=== PATIENT | male | born 1960 | race Hispanic/Latino ===

== ENCOUNTER 2017-02-19 20:10 | Emergency (ER) | payer SELFPAY ==
[2017-02-19 20:29] VITALS: BMI 22.3
[2017-02-19] MEDS ORDERED: TDAP Vaccine 0.5 mL Syr IM ONE (20:29)
--- NOTE | 2017-02-19 20:36 | ED PDOC ---
Lower Extremity Pain/Injury Time Seen by Provider: 02/19/17 20:25 Chief Complaint (Provider): Left toe pain History Per: Patient History/Exam Limitations: no limitations Onset/Duration Of Symptoms: Days Additional Complaint(s): Patient is a 56 year old male presenting to the emergency department for left toe pain that started yesterday after he was applying a piece of erin at work when it slipped and landed on his foot (sneaker-clad), puncturing his left third toe with a nail. Patient pried the nail out himself. Denies numbness or tingling. PCP: none provided. Past Medical History Reviewed: Historical Data, Nursing Documentation, Vital Signs - Medical History PMH: No Chronic Diseases - Surgical History Surgical History: No Surg Hx - Family History Family History: States: Unknown Family Hx - Social History Current smoker - smoking cessation education provided: Yes (Light smoker <5 Cigarettes Daily) Alcohol: None Drugs: Denies - Home Medications Home Medications: Ambulatory Orders Medication Instructions Recorded Acetaminophen with Codeine 1 - 2 tab PO Q6 PRN #12 tab 02/19/17 [Tylenol with Codeine No. 3 300 mg-30 mg] Sulfamethoxazole/Trimethoprim 1 tab PO BID #14 tab 02/19/17 [Bactrim DS 800 mg-160 mg] - Allergies Allergies/Adverse Reactions: Allergies Allergy/AdvReac Type Severity Reaction Status Date / Time No Known Allergies Allergy Verified 04/03/15 20:03 Review of Systems ROS Statement: Except As Marked, All Systems Reviewed And Found Negative Musculoskeletal: Positive for: Foot Pain (Left third toe pain) Neurological: Negative for: Numbness, Other (Tingling) Physical Exam - Reviewed Nursing Documentation Reviewed: Yes Vital Signs Reviewed: Yes - Physical Exam Appears: Positive for: Well, Non-toxic, No Acute Distress Head Exam: Positive for: ATRAUMATIC, NORMAL INSPECTION, NORMOCEPHALIC Skin: Positive for: Normal Color, Warm, Dry Neck: Positive for: Normal, Supple Pulses-Dorsalis Pedis (L): 2+ Extremity: Positive for: Tenderness (Moderate tenderness on left third toe), Capillary Refill (is less than 2 seconds), Other (Moderate ecchymosis and superficial puncture wound on dorsal surface of left third toe). Negative for: Deformity Neurologic/Psych: Positive for: Alert, Oriented - Radiology X-Ray: Interpreted by Me (Foot x-ray) X-Ray Interpretation: Other (L 3rd toe with non-displaced fx at the proximal portion of the middle phalanx) - Progress ED Course And Treament: Pt. evaluated by Angelica, podiatry resident, who spoke with Dr. Ruiz and requests that pt. be prescribed Bactrim DS, Tylenol #3, toe taped, and to f/u with podiatry clinic. May irrigated wound, zulema taped toes. Crutches provided along with crutch walking instructions. Pt. looked up on [place] TAX ADVISOR aware which show no previous narcotic Rx. Medical Decision Making Medical Decision Makin:29 Initial Impression: Left toe pain Initial Plan: * TDAP Vaccine 0.5 mL IM * Left Foot X-Ray * Reevaluation 21:41 X-ray results reviewed and discussed with patient. Results revealed small fracture on left foot. Currently being consulted by dialysis patient care technician. 22:20 Upon provider reevaluation patient is medically stable and requires no further treatment in the ED at this time. Patient will be discharged with Rx for Bactrim 800 mg. Counseling was provided and all questions were answered regarding diagnosis and need for follow up with referred clinic. There is agreement to discharge plan. Return if symptoms persist or worsen. Clinical impression: Toe fracture Scribe Attestation: Documented by Nahomy Singh, acting as a scribe for Sukhdeep Lorenzo PA-C. Provider Scribe Attestation: All medical record entries made by the Scribe were at my direction and personally dictated by me. I have reviewed the chart and agree that the record accurately reflects my personal performance of the history, physical exam, medical decision making, and the department course for this patient. I have also personally directed, reviewed, and agree with the discharge instructions and disposition. Disposition - Clinical Impression Clinical Impression: Toe fracture, Puncture wound - Patient ED Disposition Is Patient to be Admitted: No Counseled Patient/Family Regarding: Studies Performed, Diagnosis, Need For Followup, Rx Given - Disposition Referrals: Podiatry Clinic [Outside] Disposition: Routine/Home Disposition Time: 22:20 Condition: STABLE Additional Instructions: FOLLOW UP WITH PODIATRY CLINIC IN 1 WEEK. Prescriptions: Acetaminophen with Codeine [Tylenol with Codeine No. 3 300 mg-30 mg] 1 - 2 tab PO Q6 PRN #12 tab PRN Reason: pain Sulfamethoxazole/Trimethoprim [Bactrim DS 800 mg-160 mg] 1 tab PO BID #14 tab Instructions: Toe Fracture (ED), Puncture Wound (ED) Print Language: CUBAN
[2017-02-19] MEDS ORDERED: Tetanus/Diphtheria Toxoids 0.5 ml Syringe IM ONE (20:47)
[2017-02-19 20:51] VITALS: RESP 16
[2017-02-19 22:45] VITALS: BP 135/80; PULSE 75; TEMP 97.9; O2SAT 100
--- NOTE | 2017-02-20 16:05 | RAD ---
PROCEDURE: Left 3rd toe HISTORY: trauma COMPARISON: Not available TECHNIQUE: Three views of left foot FINDINGS: There is a nondisplaced oblique intra-articular fracture at the base of the 3rd middle phalanx, medial aspect. No other fracture is identified. The joint spaces and articular surfaces are preserved. IMPRESSION: Nondisplaced oblique intra-articular fracture at the base of the 3rd middle phalanx.
--- NOTE | 2017-02-21 00:03 | CP.PCM.CON ---
History of Present Illness - History of Present Illness History of Present Illness: 56 year old male patient seen at bedside in ED for puncture wound to L 3rd toe. Patient states that he was carrying a piece of plywood and then it fell onto his foot; a nail that was in the plywood punctured his 3rd toe. Patient states he was able to remove the nail himself. Patient feels like there's still something inside his foot. Patient denies N/V/F/D/C/SOB. Tetanus status unknown. No other pedal complaints at this time. PMH: unremarkable PSH: none Meds: see med list FH: noncontributory SH: occasional ETOH, +tobacco use, no illicit drugs All: NKDA Review of Systems - Review of Systems All systems: reviewed and no additional remarkable complaints except (as per HPI ) Past Patient History - Past Medical History & Family History Past Medical History?: No - Past Social History Alcohol: None Drugs: Denies - PSYCHIATRIC Hx Emotional Abuse: No Hx Physical Abuse: No Hx Substance Use: No - SURGICAL HISTORY Hx Surgeries: No - ANESTHESIA Hx Anesthesia: No Meds Home Medications: Home Medication List Medication Instructions Recorded Confirmed Type Acetaminophen with Codeine 1 - 2 tab PO Q6 PRN #12 tab 02/19/17 Rx [Tylenol with Codeine No. 3 300 mg-30 mg] Sulfamethoxazole/Trimethoprim 1 tab PO BID #14 tab 02/19/17 Rx [Bactrim DS 800 mg-160 mg] Allergies/Adverse Reactions: Allergies Allergy/AdvReac Type Severity Reaction Status Date / Time No Known Allergies Allergy Verified 04/03/15 20:03 Physical Exam - Constitutional Appears: Well, Non-toxic, No Acute Distress - Extremities Exam Additional comments: LLE focused physical exam: Vasc:DP and PT pulses palpable 2/4. CFT <3 seconds to all digits x5. TG warm to warm. Nonpitting edema noted to 3rd digit. No increase in warmth to 3rd digit Neuro: Gross sensation intact. Derm: Erythema noted to entire 3rd digit with pinpoint puncture wound with overlying eshcar noted to PIPJ. Ortho: Pain on palpation entire 3rd digit. Pain upon passive and active ROM to 3rd digit. No pain on palpation noted to 3rd met head. - Neurological Exam Neurological exam: Alert, Oriented x3 - Psychiatric Exam Psychiatric exam: Normal Affect, Normal Mood Results - Vital Signs Recent Vital Signs: Last Vital Signs Temp 97.9 F 02/19/17 22:45 Pulse 75 02/19/17 22:45 Resp 16 02/19/17 22:45 BP 135/80 02/19/17 22:45 Pulse Ox 100 02/19/17 22:45 Assessment & Plan - Assessment and Plan (Free Text) Assessment: 56 year old male with traumatic nondisplaced fx of 3rd middle phalanx, left foot Plan: Patient examined and evaluated. Discussed with attending, Dr. Ruiz. Chart, labs, vitals reviewed = afebrile Patient was primarily cymro speaking, interpretor was used (Giovanni [id number]) Wound was irrigated with betadine/saline solution Betadine splint was applied using silk tape Surgical shoe was dispensed to patient Crutches were dispensed to patient. Crutch walking instructions were given Recommend Bactrim DS Recommend Tylenol #3 prn pain Patient is to follow up in podiatry clinic next week for evaluation of left 3rd digit - Date & Time Date: 02/19/17 Time: 21:50
== END 2017-02-19 23:32 | disposition home or self-care (01) ==
LOC: H.ER 20:10
DX: S92.525A Nondisplaced fracture of middle phalanx of left lesser toe(s), initial encounter for closed fracture (principal); S91.135A Puncture wound without foreign body of left lesser toe(s) without damage to nail, initial encounter; W20.8XXA Other cause of strike by thrown, projected or falling object, initial encounter; Y93.H3 Activity, building and construction; Y92.9 Unspecified place or not applicable; Y99.0 Civilian activity done for income or pay; Z23 Encounter for immunization

== ENCOUNTER 2018-07-17 20:36 | Observation (INO) | payer SELFPAY ==
[2018-07-17 20:36] VITALS: BMI 22.3
--- NOTE | 2018-07-17 21:28 | ED PDOC ---
HPI: Chest Pain Time Seen by Provider: 07/17/18 21:11 Chief Complaint (Nursing): Chest Pain Chief Complaint (Provider): chest pain History Per: Patient, Manager Instrumentation (Giorgicandice #[id number]) History/Exam Limitations: no limitations Onset/Duration Of Symptoms: Hrs (10) Current Symptoms Are (Timing): Still Present Associated Symptoms: Dyspnea Additional Complaint(s): 58 y/o male history of CAD (s/p stent placement 04/2018) presents for evaluation of left-sided chest pain x 10 hours. Patient states patient began while walking, has been present since. Patient notes some shortness of breath. Denies headache, dizziness, extremity numbness/weakness, palpitations, abdominal pain, leg pain/swelling. Past Medical History Reviewed: Historical Data, Nursing Documentation, Vital Signs Vital Signs: Last Vital Signs Temp 97.7 F 07/17/18 20:46 Pulse 59 L 07/17/18 20:46 Resp 20 07/17/18 20:46 BP 124/79 07/17/18 20:46 Pulse Ox 98 07/17/18 20:46 - Medical History PMH: CAD - Surgical History Surgical History: Coronary Stent - Family History Family History: States: Unknown Family Hx - Home Medications Home Medications: Ambulatory Orders Medication Instructions Recorded Acetaminophen with Codeine 1 - 2 tab PO Q6 PRN #12 tab 02/19/17 [Tylenol with Codeine No. 3 300 mg-30 mg] Sulfamethoxazole/Trimethoprim 1 tab PO BID #14 tab 02/19/17 [Bactrim DS 800 mg-160 mg] - Allergies Allergies/Adverse Reactions: Allergies Allergy/AdvReac Type Severity Reaction Status Date / Time No Known Allergies Allergy Verified 04/03/15 20:03 MOLLY Risk Score for UA/NSTEMI - MOLLY Risk Score Age > 64: NO 3 or more CAD Risk Factors: YES Known CAD (Stenosis greater than 50%): YES Aspirin use in past 7 days: YES Severe Angina: NO EKG ST changes greater than 0.5mm: NO Positive Cardiac Marker: NO MOLLY Score: 3 Risk %: 13% Review of Systems ROS Statement: Except As Marked, All Systems Reviewed And Found Negative Cardiovascular: Positive for: Chest Pain Respiratory: Positive for: Shortness of Breath Physical Exam - Reviewed Nursing Documentation Reviewed: Yes Vital Signs Reviewed: Yes - Physical Exam Appears: Positive for: Well, Non-toxic, No Acute Distress Head Exam: Positive for: ATRAUMATIC, NORMAL INSPECTION, NORMOCEPHALIC Skin: Positive for: Normal Color Eye Exam: Positive for: Normal appearance ENT: Positive for: Normal ENT Inspection Cardiovascular/Chest: Positive for: Regular Rate, Rhythm Respiratory: Positive for: Normal Breath Sounds Gastrointestinal/Abdominal: Positive for: Normal Exam Back: Positive for: Normal Inspection Extremity: Positive for: Normal ROM Neurologic/Psych: Positive for: Alert, Oriented (x3) - Laboratory Results Result Diagrams: 07/17/18 21:55 07/17/18 21:55 - ECG ECG: Positive for: Viewed By Me (reviewed by ED attending) ECG Rhythm: Positive for: Sinus Rhythm, Nonspecific Changes O2 Sat by Pulse Oximetry: 98 - Radiology X-Ray: Viewed By Me X-Ray Interpretation: No Acute Disease - Progress ED Course And Treament: -cbc -cmp -trop -pro-bnp -ekg -cxr -lunchroom monitor Case discussed with Dr. Velazquez, Hospitalist on-call, for placement in telemetry observation Disposition - Clinical Impression Clinical Impression: Chest pain - Disposition Disposition Time: 23:48 Condition: FAIR Forms: [employer] (Mosotho)
[2018-07-17 21:58] LABS: BASO # 0.1 K/uL (0.0-0.2); BASO % 1.1 % (0.0-2.0); EOS # 0.2 K/uL (0.0-0.7); EOS % 3.1 % (0.0-4.0); HEMOGLOBIN 14.3 g/dL (12.0-18.0); LYMPH # 2.3 K/uL (1.0-4.3); LYMPH % 33.7 % (20.0-40.0); MEAN CELL VOLUME 90.6 fl (80.0-94.0); MEAN CORPUSCULAR HEMOGLOBIN 31.8 pg (27.0-31.0); MEAN PLATELET VOLUME 12.1 fl (7.2-11.7); MONO # 0.5 K/uL (0.0-0.8); MONO % 7.9 % (0.0-10.0); NEUT # 3.7 K/uL (1.8-7.0); NEUT % 54.2 % (50.0-75.0); NRBC % 0.3 % (0.0-0.0); RBC 4.5 Mil/uL (4.40-5.90); RED CELL DISTRIBUTION WIDTH 13.1 % (11.5-14.5); WHITE BLOOD COUNT 6.9 K/uL (4.8-10.8)
[2018-07-17 22:09] LABS: ALB/GLOB RATIO 1.4 (1.0-2.1); ALBUMIN 4.2 g/dL (3.5-5.0); BLOOD UREA NITROGEN 25 mg/dl (9-20); CALCIUM 9.3 mg/dL (8.4-10.2); GFR NON-AFRICAN AMERICAN > 60
[2018-07-17 22:20] LABS: ALT/SGPT 47 U/L (21-72); AST/SGOT 30 U/L (17-59); B-TYPE NATRIURETIC PEPTIDE 110 pg/ml (0-900)
[2018-07-18] MEDS ORDERED: Sodium Chloride 0.9% 1,000 ML IV SCH (00:15)
--- NOTE | 2018-07-18 00:40 | CP.PCM.HP ---
<Bc Wynn - Last Filed: 07/18/18 00:54> History of Present Illness - History of Present Illness History of Present Illness: 58 yo male patient present to the ED c/o chest pain today in the afternoon while he was walking on the street. Patient has PMH of [place] on last April. Patient reports pain is like a pressure in the left side of neck and chest but not in the arm. Also patient notes some shortness of breath. He endorses that since infarction he is able to climb 2 flight stairs and lift moderate weight w/o chest pain or sob. He reports compliance with medications. Otherwise he denies headache, dizziness, extremity numbness/weakness, palpitations, abdominal pain, leg pain/swelling. PMD: at [facility], last visit on 05/01/[address] Guzman. 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 PMH: CAD PSH: coronary stent 04/2018 FMH: denies family h/o coronary diseases Meds: see shantel DOAN SH: ex smoker (quit 2 months ago after [place]), denies etoh or ilicit drugs use Present on Admission - Present on Admission Any Indicators Present on Admission: No Review of Systems - Review of Systems All systems: reviewed and no additional remarkable complaints except (HPI) Past Patient History - Past Medical History & Family History Past Medical History?: No - Past Social History Smoking Status: Never Smoked - CARDIAC Hx Hypotension: Yes Other/Comment: myocardial infarction - PSYCHIATRIC Hx Emotional Abuse: No Hx Physical Abuse: No Hx Substance Use: No - SURGICAL HISTORY Hx Coronary Stent: Yes - ANESTHESIA Hx Anesthesia: No Meds Allergies/Adverse Reactions: Allergies Allergy/AdvReac Type Severity Reaction Status Date / Time No Known Allergies Allergy Verified 04/03/15 20:03 Physical Exam - Constitutional Appears: No Acute Distress - Head Exam Head Exam: NORMAL INSPECTION - Eye Exam Eye Exam: EOMI Pupil Exam: PERRL - Respiratory Exam Respiratory Exam: Clear to Auscultation Bilateral, NORMAL BREATHING PATTERN - Cardiovascular Exam Cardiovascular Exam: Bradycardia, REGULAR RHYTHM, +S1, +S2 - GI/Abdominal Exam GI & Abdominal Exam: Normal Bowel Sounds, Soft. absent: Distended, Tenderness - Extremities Exam Extremities exam: Negative for: pedal edema - Neurological Exam Neurological exam: Alert, CN II-XII Intact, Oriented x3 - Skin Skin Exam: Dry, Warm Results - Vital Signs Recent Vital Signs: Last Vital Signs Temp 97.7 F 07/17/18 20:46 Pulse 59 L 07/17/18 20:46 Resp 20 07/17/18 20:46 BP 124/79 07/17/18 20:46 Pulse Ox 98 07/17/18 23:48 - Labs Result Diagrams: 07/17/18 21:55 07/17/18 21:55 Labs: Laboratory Results - last 24 hr 07/17/18 07/17/18 21:55 21:55 WBC 6.9 RBC 4.50 Hgb 14.3 Hct 40.8 MCV 90.6 MCH 31.8 H MCHC 35.0 RDW 13.1 Plt Count 121 L MPV 12.1 H Neut % (Auto) 54.2 Lymph % (Auto) 33.7 [place] % (Auto) 7.9 Eos % (Auto) 3.1 Baso % (Auto) 1.1 Neut # (Auto) 3.7 Lymph # (Auto) 2.3 [place] # (Auto) 0.5 Eos # (Auto) 0.2 Baso # (Auto) 0.1 Sodium 138 Potassium 4.8 Chloride 104 Carbon Dioxide 25 Anion Gap 14 BUN 25 H Creatinine 0.8 Est GFR ( Amer) > 60 Est GFR (Non-Af Amer) > 60 Random Glucose 113 H Calcium 9.3 Total Bilirubin 1.1 AST 30 ALT 47 Alkaline Phosphatase 58 Troponin I < 0.0120 NT-Pro-B Natriuret Pep 110 Total Protein 7.2 Albumin 4.2 Globulin 3.0 Albumin/Globulin Ratio 1.4 Assessment & Plan - Assessment and Plan (Free Text) Assessment: 58 yo male patient with PMH of [place] 2 months ago s/p coronary stent admitted with chest pain on exertion, r/o ACS Plan: Chest pain on exertion - r/o ACS - admit to tele - EKG: sinus bradycardia, T wave inversions V1 to V4, no older EKG to compare - CXR negative for acute lung disease - ASA 325 mg in ED - Troponin x1 negative - Cardio consult - Resumed home meds - labs and ekg in am History of CAD - s/p coronary stent 04/2018 at [facility] - 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 - Resumed home meds - Cardiology in house Dr Webb consulted, recommendations appreciated Full code <Shelbi Velazquez - Last Filed: 07/18/18 23:43> Results - Vital Signs Recent Vital Signs: Last Vital Signs Temp 98.1 F 07/18/18 11:53 Pulse 56 L 07/18/18 11:53 Resp 18 07/18/18 11:53 BP 103/62 07/18/18 11:53 Pulse Ox 98 07/18/18 11:53 - Labs Result Diagrams: 07/18/18 04:45 07/18/18 04:45 Labs: Laboratory Results - last 24 hr 07/18/18 07/18/18 07/18/18 04:45 04:45 09:43 WBC 6.9 RBC 4.55 Hgb 14.2 Hct 41.2 MCV 90.6 MCH 31.2 H MCHC 34.4 RDW 13.0 Plt Count 105 L MPV 11.9 H Neut % (Auto) 59.3 Lymph % (Auto) 29.2 [place] % (Auto) 7.7 Eos % (Auto) 3.1 Baso % (Auto) 0.7 Neut # (Auto) 4.1 Lymph # (Auto) 2.0 [place] # (Auto) 0.5 Eos # (Auto) 0.2 Baso # (Auto) 0.0 Sodium 141 Potassium 4.7 Chloride 104 Carbon Dioxide 28 Anion Gap 14 BUN 22 H Creatinine 0.9 Est GFR ( Amer) > 60 Est GFR (Non-Af Amer) > 60 Random Glucose 92 Calcium 9.1 Total Bilirubin 1.0 AST 28 ALT 47 Alkaline Phosphatase 68 Troponin I < 0.0120 0.0130 Total Protein 6.6 Albumin 3.8 Globulin 2.8 Albumin/Globulin Ratio 1.4 Triglycerides 99 D Cholesterol 95 LDL Cholesterol Direct 63 HDL Cholesterol 26 L Thyroxine (T4) 9.14 TSH 3rd Generation 3.66 Attending/Attestation - Attestation I have personally seen and examined this patient.: Yes I have fully participated in the care of the patient.: Yes I have reviewed all pertinent clinical information: Yes Notes (Text): 07/18/18 23:43 agree with findings and plan as above
[2018-07-18 05:34] LABS: BASO % 0.7 % (0.0-2.0); EOS # 0.2 K/uL (0.0-0.7); EOS % 3.1 % (0.0-4.0); HEMOGLOBIN 14.2 g/dL (12.0-18.0); LYMPH % 29.2 % (20.0-40.0); MEAN CELL VOLUME 90.6 fl (80.0-94.0); MEAN CORPUSCULAR HEMOGLOBIN 31.2 pg (27.0-31.0); MEAN CORPUSCULAR HGB CONC 34.4 g/dL (33.0-37.0); MEAN PLATELET VOLUME 11.9 fl (7.2-11.7); MONO # 0.5 K/uL (0.0-0.8); MONO % 7.7 % (0.0-10.0); NEUT # 4.1 K/uL (1.8-7.0); NEUT % 59.3 % (50.0-75.0); RBC 4.55 Mil/uL (4.40-5.90); WHITE BLOOD COUNT 6.9 K/uL (4.8-10.8)
[2018-07-18 05:50] LABS: ALB/GLOB RATIO 1.4 (1.0-2.1); ALBUMIN 3.8 g/dL (3.5-5.0); ALT/SGPT 47 U/L (21-72); AST/SGOT 28 U/L (17-59); BLOOD UREA NITROGEN 22 mg/dl (9-20); CALCIUM 9.1 mg/dL (8.4-10.2); GFR NON-AFRICAN AMERICAN > 60; HDL CHOLESTEROL 26 MG/DL (30-70)
[2018-07-18 05:59] LABS: T4 9.14 ug/dl (5.5-11.0)
[2018-07-18 06:00] LABS: LDL CHOLESTEROL 63 mg/dL (0-129)
--- NOTE | 2018-07-18 06:05 | CARD ---
APPROVED REPORT Date of service: 07/17/2018 EKG Measurement Heart [id number] <Conclusion> Sinus bradycardia T wave abnormality, consider anterior ischemia Abnormal ECG
--- NOTE | 2018-07-18 08:40 | RAD ---
Date of service: 07/17/2018 HISTORY: chest pain COMPARISON: No prior. TECHNIQUE: Chest PA and lateral FINDINGS: LUNGS: No active pulmonary disease. PLEURA: No significant pleural effusion identified. No pneumothorax apparent. CARDIOVASCULAR: There is absence of aortic atherosclerotic calcification on x-ray. Normal cardiac size. No pulmonary vascular congestion. OSSEOUS STRUCTURES: No significant abnormalities. VISUALIZED UPPER ABDOMEN: Normal. OTHER FINDINGS: None. IMPRESSION: No active disease.
[2018-07-18] MEDS ORDERED: ATORVASTATIN PO SCH (09:00)
[2018-07-18] MEDS ORDERED: EPLERENONE 25 MG PO SCH (09:00)
[2018-07-18] MEDS ORDERED: Patient's Own Med (Lisinopril [Zestril] 2.5 MG) PO SCH (09:00)
[2018-07-18 11:54] VITALS: BP 103/62; PULSE 56; RESP 18; TEMP 98.1; O2SAT 98
--- NOTE | 2018-07-18 12:04 | CP.PCM.CON ---
History of Present Illness - History of Present Illness History of Present Illness: 58 yo male patient admitted with chest that startedwhile he was walking on the street he then went home and sat.... the pain did not dissipate until 2 hrs later Pt admits he is stressed out has no job and he is in the process of moving Patient has PMH of [place] on last April stents were placed PMD: at [facility] last visit on 05/01/[address] Guzman. 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 PMH: CAD PSH: coronary stent 04/2018 SH: ex smoker (quit 2 months ago after [place]), denies etoh or ilicit drugs use EKG: no acute changes Troponin: neg Past Patient History - Past Medical History & Family History Past Medical History?: Yes - Past Social History Smoking Status: Former Smoker - CARDIAC Hx Hypotension: Yes Other/Comment: myocardial infarction - PULMONARY Hx Respiratory Disorders: No - NEUROLOGICAL Hx Neurological Disorder: No - HEENT Hx HEENT Problems: No - RENAL Hx Chronic Kidney Disease: No - ENDOCRINE/METABOLIC Hx Endocrine Disorders: No - HEMATOLOGICAL/ONCOLOGICAL Hx Blood Disorders: No Hx AIDS: No Hx Human Immunodeficiency Virus (HIV): No - INTEGUMENTARY Hx Dermatological Problems: No - MUSCULOSKELETAL/RHEUMATOLOGICAL Hx Musculoskeletal Disorders: No Hx Falls: No - GASTROINTESTINAL Hx Gastrointestinal Disorders: No - GENITOURINARY/GYNECOLOGICAL Hx Genitourinary Disorders: No - PSYCHIATRIC Hx Psychophysiologic Disorder: No Hx Emotional Abuse: No Hx Physical Abuse: No Hx Substance Use: No - SURGICAL HISTORY Hx Surgeries: Yes Hx Coronary Stent: Yes - ANESTHESIA Hx Anesthesia: No Meds Allergies/Adverse Reactions: Allergies Allergy/AdvReac Type Severity Reaction Status Date / Time No Known Allergies Allergy Verified 04/03/15 20:03 - Medications Medications: Current Medications Aspirin (Ecotrin) 81 mg PO DAILY [facility] Last Admin: 07/18/18 08:49 Dose: 81 mg Atorvastatin Calcium (Lipitor) 80 mg PO DAILY [facility] Last Admin: 07/18/18 08:49 Dose: 80 mg Sodium Chloride (Sodium Chloride 0.9%) 1,000 mls @ 125 mls/hr IV .Q8H [facility] Last Admin: 07/18/18 02:02 Dose: 125 mls/hr Lisinopril (Zestril) 2.5 mg PO DAILY [facility] Last Admin: 07/18/18 08:48 Dose: 2.5 mg Ticagrelor (Brilinta) 90 mg PO BID [facility] Last Admin: 07/18/18 08:49 Dose: 90 mg Physical Exam - Respiratory Exam Respiratory Exam: NORMAL BREATHING PATTERN - Cardiovascular Exam Cardiovascular Exam: REGULAR RHYTHM Results - Vital Signs Recent Vital Signs: Last Vital Signs Temp 98.1 F 07/18/18 11:53 Pulse 56 L 07/18/18 11:53 Resp 18 07/18/18 11:53 BP 103/62 07/18/18 11:53 Pulse Ox 98 07/18/18 11:53 - Labs Result Diagrams: 07/18/18 04:45 07/18/18 04:45 Labs: Laboratory Results - last 24 hr 07/17/18 07/17/18 07/18/18 21:55 21:55 04:45 WBC 6.9 6.9 RBC 4.50 4.55 Hgb 14.3 14.2 Hct 40.8 41.2 MCV 90.6 90.6 MCH 31.8 H 31.2 H MCHC 35.0 34.4 RDW 13.1 13.0 Plt Count 121 L 105 L MPV 12.1 H 11.9 H Neut % (Auto) 54.2 59.3 Lymph % (Auto) 33.7 29.2 [place] % (Auto) 7.9 7.7 Eos % (Auto) 3.1 3.1 Baso % (Auto) 1.1 0.7 Neut # (Auto) 3.7 4.1 Lymph # (Auto) 2.3 2.0 [place] # (Auto) 0.5 0.5 Eos # (Auto) 0.2 0.2 Baso # (Auto) 0.1 0.0 Sodium 138 Potassium 4.8 Chloride 104 Carbon Dioxide 25 Anion Gap 14 BUN 25 H Creatinine 0.8 Est GFR ( Amer) > 60 Est GFR (Non-Af Amer) > 60 Random Glucose 113 H Calcium 9.3 Total Bilirubin 1.1 AST 30 ALT 47 Alkaline Phosphatase 58 Troponin I < 0.0120 NT-Pro-B Natriuret Pep 110 Total Protein 7.2 Albumin 4.2 Globulin 3.0 Albumin/Globulin Ratio 1.4 Triglycerides Cholesterol LDL Cholesterol Direct HDL Cholesterol Thyroxine (T4) TSH 3rd Generation 07/18/18 07/18/18 04:45 09:43 WBC RBC Hgb Hct MCV MCH MCHC RDW Plt Count MPV Neut % (Auto) Lymph % (Auto) [place] % (Auto) Eos % (Auto) Baso % (Auto) Neut # (Auto) Lymph # (Auto) [place] # (Auto) Eos # (Auto) Baso # (Auto) Sodium 141 Potassium 4.7 Chloride 104 Carbon Dioxide 28 Anion Gap 14 BUN 22 H Creatinine 0.9 Est GFR ( Amer) > 60 Est GFR (Non-Af Amer) > 60 Random Glucose 92 Calcium 9.1 Total Bilirubin 1.0 AST 28 ALT 47 Alkaline Phosphatase 68 Troponin I < 0.0120 0.0130 NT-Pro-B Natriuret Pep Total Protein 6.6 Albumin 3.8 Globulin 2.8 Albumin/Globulin Ratio 1.4 Triglycerides 99 D Cholesterol 95 LDL Cholesterol Direct 63 HDL Cholesterol 26 L Thyroxine (T4) 9.14 TSH 3rd Generation 3.66 Assessment & Plan (1) Chest pain Assessment and Plan: Pain appears to be non cardiac in origin pt may be discharged.. 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
--- NOTE | 2018-07-18 14:09 | CP.PCM.DIS ---
<Avelino Loving - Last Filed: 07/18/18 14:25> Provider - Provider Date of Admission: 07/17/18 23:48 Attending physician: Shelbi Velazquez DO Consults: 07/18/18 00:18 Cardiology Consult Routine Comment: Consulting Provider: Harshal Webb Consulting Physician: Harshal Webb Reason for Consult: chest pain on exertion, h/o [place] 2 months ago Time Spent in preparation of Discharge (in minutes): 35 Diagnosis - Discharge Diagnosis (1) Chest pain not due to acute coronary syndrome Status: Resolved (2) CAD (coronary atherosclerotic disease) Status: Chronic Hospital Course - Lab Results Lab Results: Most Recent Lab Values WBC 6.9 K/uL (4.8-10.8) 07/18/18 04:45 RBC 4.55 Mil/uL (4.40-5.90) 07/18/18 04:45 Hgb 14.2 g/dL (12.0-18.0) 07/18/18 04:45 Hct 41.2 % (35.0-51.0) 07/18/18 04:45 MCV 90.6 fl (80.0-94.0) 07/18/18 04:45 MCH 31.2 pg (27.0-31.0) H 07/18/18 04:45 MCHC 34.4 g/dL (33.0-37.0) 07/18/18 04:45 RDW 13.0 % (11.5-14.5) 07/18/18 04:45 Plt Count 105 K/uL (130-400) L 07/18/18 04:45 MPV 11.9 fl (7.2-11.7) H 07/18/18 04:45 Neut % (Auto) 59.3 % (50.0-75.0) 07/18/18 04:45 Lymph % (Auto) 29.2 % (20.0-40.0) 07/18/18 04:45 Grimes % (Auto) 7.7 % (0.0-10.0) 07/18/18 04:45 Eos % (Auto) 3.1 % (0.0-4.0) 07/18/18 04:45 Baso % (Auto) 0.7 % (0.0-2.0) 07/18/18 04:45 Neut # (Auto) 4.1 K/uL (1.8-7.0) 07/18/18 04:45 Lymph # (Auto) 2.0 K/uL (1.0-4.3) 07/18/18 04:45 Grimes # (Auto) 0.5 K/uL (0.0-0.8) 07/18/18 04:45 Eos # (Auto) 0.2 K/uL (0.0-0.7) 07/18/18 04:45 Baso # (Auto) 0.0 K/uL (0.0-0.2) 07/18/18 04:45 Sodium 141 mmol/l (132-148) 07/18/18 04:45 Potassium 4.7 MMOL/L (3.6-5.0) 07/18/18 04:45 Chloride 104 mmol/L (98-107) 07/18/18 04:45 Carbon Dioxide 28 mmol/L (22-30) 07/18/18 04:45 Anion Gap 14 (10-20) 07/18/18 04:45 BUN 22 mg/dl (9-20) H 07/18/18 04:45 Creatinine 0.9 mg/dl (0.8-1.5) 07/18/18 04:45 Est GFR ( Amer) > 60 07/18/18 04:45 Est GFR (Non-Af Amer) > 60 07/18/18 04:45 Random Glucose 92 mg/dL (75-110) 07/18/18 04:45 Calcium 9.1 mg/dL (8.4-10.2) 07/18/18 04:45 Total Bilirubin 1.0 mg/dl (0.2-1.3) 07/18/18 04:45 AST 28 U/L (17-59) 07/18/18 04:45 ALT 47 U/L (21-72) 07/18/18 04:45 Alkaline Phosphatase 68 U/L (38-126) 07/18/18 04:45 Troponin I 0.0130 ng/mL (0.00-0.120) 07/18/18 09:43 NT-Pro-B Natriuret Pep 110 pg/ml (0-900) 07/17/18 21:55 Total Protein 6.6 G/DL (6.3-8.2) 07/18/18 04:45 Albumin 3.8 g/dL (3.5-5.0) 07/18/18 04:45 Globulin 2.8 gm/dL (2.2-3.9) 07/18/18 04:45 Albumin/Globulin Ratio 1.4 (1.0-2.1) 07/18/18 04:45 Triglycerides 99 mg/DL (0-149) D 07/18/18 04:45 Cholesterol 95 mg/dL (0-199) 07/18/18 04:45 LDL Cholesterol Direct 63 mg/dL (0-129) 07/18/18 04:45 HDL Cholesterol 26 MG/DL (30-70) L 07/18/18 04:45 Thyroxine (T4) 9.14 ug/dl (5.5-11.0) 07/18/18 04:45 TSH 3rd Generation 3.66 mIU/ML (0.46-4.68) 07/18/18 04:45 - Hospital Course Hospital Course: 58 y/o M with PMHx of CAD, Ex smoker, s/p stent placement in 04/2018 presents to ED complaining of chest pain while walking on the street. Patient evaluated in ED and monitored in Telemetry. Founder And Chief Executive Officer consulted. EKG showed sinus bradycardia, T wave inversion in V1 to V4, CXR WNL, Troponins x 3 negative. Patient received ASA, Lipitor, Lisinopril, Brilinta and IVF. Patient remained stable w/o chest pain or any new symptoms. Chest pain resolved and unlikely to be cardiac origin. Patient cleared by materials analyst to discharged home. Patient to F/U with PMD and materials analyst. Discharge Medications - ASA 81 mg PO daily - Atorvastatin 80 mg PO daily - Lisinopril 2.5 mg PO daily - Brilinta 90 mg PO BID PMD: [facility], Dr. Guzman. Founder And Chief Executive Officer: Emma Gooden. Discharge Exam - Head Exam Head Exam: NORMAL INSPECTION - Eye Exam Eye Exam: EOMI, Normal appearance - ENT Exam ENT Exam: Mucous Membranes Moist - Neck Exam Neck exam: Full Rom - Respiratory Exam Respiratory Exam: Clear to PA & Lateral. absent: Rales, Rhonchi, Wheezes, Respiratory Distress - Cardiovascular Exam Cardiovascular Exam: REGULAR RHYTHM, +S1, +S2. absent: Systolic Murmur - GI/Abdominal Exam GI & Abdominal Exam: Unremarkable - Neurological Exam Neurological exam: Alert, Normal Gait, Oriented x3 - Psychiatric Exam Psychiatric exam: Normal Affect, Normal Mood - Skin Skin Exam: Dry, Intact, Normal Color Discharge Plan - Follow Up Plan Condition: GOOD Disposition: HOME/ ROUTINE Instructions: Chest Pain Additional Instructions: Patient advised to F/U with [facility] in 2-4 days Follow up with Founder And Chief Executive Officer. Referrals: [facility] [place] [Outside] Minerva Guzman MD [Family Provider] - <Rosa Orellana - Last Filed: 07/18/18 16:49> Provider - Provider Date of Admission: 07/17/18 23:48 Attending physician: Shelbi Velazquez DO Consults: 07/18/18 00:18 Cardiology Consult Routine Comment: Consulting Provider: Harshal Webb Consulting Physician: Harshal Webb Reason for Consult: chest pain on exertion, h/o [place] 2 months ago Hospital Course - Lab Results Lab Results: Most Recent Lab Values WBC 6.9 K/uL (4.8-10.8) 07/18/18 04:45 RBC 4.55 Mil/uL (4.40-5.90) 07/18/18 04:45 Hgb 14.2 g/dL (12.0-18.0) 07/18/18 04:45 Hct 41.2 % (35.0-51.0) 07/18/18 04:45 MCV 90.6 fl (80.0-94.0) 07/18/18 04:45 MCH 31.2 pg (27.0-31.0) H 07/18/18 04:45 MCHC 34.4 g/dL (33.0-37.0) 07/18/18 04:45 RDW 13.0 % (11.5-14.5) 07/18/18 04:45 Plt Count 105 K/uL (130-400) L 07/18/18 04:45 MPV 11.9 fl (7.2-11.7) H 07/18/18 04:45 Neut % (Auto) 59.3 % (50.0-75.0) 07/18/18 04:45 Lymph % (Auto) 29.2 % (20.0-40.0) 07/18/18 04:45 Grimes % (Auto) 7.7 % (0.0-10.0) 07/18/18 04:45 Eos % (Auto) 3.1 % (0.0-4.0) 07/18/18 04:45 Baso % (Auto) 0.7 % (0.0-2.0) 07/18/18 04:45 Neut # (Auto) 4.1 K/uL (1.8-7.0) 07/18/18 04:45 Lymph # (Auto) 2.0 K/uL (1.0-4.3) 07/18/18 04:45 Grimes # (Auto) 0.5 K/uL (0.0-0.8) 07/18/18 04:45 Eos # (Auto) 0.2 K/uL (0.0-0.7) 07/18/18 04:45 Baso # (Auto) 0.0 K/uL (0.0-0.2) 07/18/18 04:45 Sodium 141 mmol/l (132-148) 07/18/18 04:45 Potassium 4.7 MMOL/L (3.6-5.0) 07/18/18 04:45 Chloride 104 mmol/L (98-107) 07/18/18 04:45 Carbon Dioxide 28 mmol/L (22-30) 07/18/18 04:45 Anion Gap 14 (10-20) 07/18/18 04:45 BUN 22 mg/dl (9-20) H 07/18/18 04:45 Creatinine 0.9 mg/dl (0.8-1.5) 07/18/18 04:45 Est GFR ( Amer) > 60 07/18/18 04:45 Est GFR (Non-Af Amer) > 60 07/18/18 04:45 Random Glucose 92 mg/dL (75-110) 07/18/18 04:45 Calcium 9.1 mg/dL (8.4-10.2) 07/18/18 04:45 Total Bilirubin 1.0 mg/dl (0.2-1.3) 07/18/18 04:45 AST 28 U/L (17-59) 07/18/18 04:45 ALT 47 U/L (21-72) 07/18/18 04:45 Alkaline Phosphatase 68 U/L (38-126) 07/18/18 04:45 Troponin I 0.0130 ng/mL (0.00-0.120) 07/18/18 09:43 NT-Pro-B Natriuret Pep 110 pg/ml (0-900) 07/17/18 21:55 Total Protein 6.6 G/DL (6.3-8.2) 07/18/18 04:45 Albumin 3.8 g/dL (3.5-5.0) 07/18/18 04:45 Globulin 2.8 gm/dL (2.2-3.9) 07/18/18 04:45 Albumin/Globulin Ratio 1.4 (1.0-2.1) 07/18/18 04:45 Triglycerides 99 mg/DL (0-149) D 07/18/18 04:45 Cholesterol 95 mg/dL (0-199) 07/18/18 04:45 LDL Cholesterol Direct 63 mg/dL (0-129) 07/18/18 04:45 HDL Cholesterol 26 MG/DL (30-70) L 07/18/18 04:45 Thyroxine (T4) 9.14 ug/dl (5.5-11.0) 07/18/18 04:45 TSH 3rd Generation 3.66 mIU/ML (0.46-4.68) 07/18/18 04:45 Attending/Attestation - Attestation I have personally seen and examined this patient.: Yes I have fully participated in the care of the patient.: Yes I have reviewed all pertinent clinical information, including history, physical exam and plan: Yes Notes (Text): Chest Pain , ACS ruled out etiology to be determined, further cardiac work up as outpatient -advised pt to ff up with his own Cardio - cont Brilinta for 1 year
== END 2018-07-18 15:40 | disposition home or self-care (01) ==
LOC: H.ER 20:36 → H.ERHOLD 23:48 → H.TEL 07-18 00:50
PROVIDERS: ADMIT Student in an Organized Health Care Education/Training Program; ATTEND Student in an Organized Health Care Education/Training Program
DX: R07.89 Other chest pain (principal); I25.10 Atherosclerotic heart disease of native coronary artery without angina pectoris; Z95.5 Presence of coronary angioplasty implant and graft; I25.2 Old myocardial infarction; Z87.891 Personal history of nicotine dependence
CPT/HCPCS: 36415; 71046; 80053; 80061; 83880; 84436; 84443; 84484; 85025; 93005; 99282; G0378; J7030